=== PATIENT | male | born 1960 | race Caucasian/White ===

== ENCOUNTER 2017-09-03 07:13 | Emergency (ER) | payer OTHER ==
--- NOTE | 2017-09-03 07:28 | CPEKG ---
Heart Rate: 94 RR Interval: 638 P-R Interval: 152 QRSD Interval: 72 QT Interval: 380 QTC Interval: 476 P Warren: 40 QRS Warren: 33 T Wave Warren: 40 EKG Severity - BORDERLINE ECG - EKG Impression: SINUS RHYTHM EKG Impression: BORDERLINE PROLONGED QT INTERVAL Electronically Signed By: Gavin Go 03-Sep-2017 07:49:05
[2017-09-03] MEDS ORDERED: ASPIRIN 81 MG CHEWABLE TAB PO ONE (07:33)
[2017-09-03] MEDS ORDERED: KETOROLAC 15 MG/1 ML SDV IVP ONE (07:34)
[2017-09-03 07:46] LABS: % IMMATURE GRANULYOCYTES 0.1 % (0.0-1.1); ABSOLUTE IMMATURE GRANULOCYTES 0.01 10^3/uL (0.00-0.10); ADD DIFF? NO; ADD MORPH? NO; ADD SCAN? NO; ATYPICAL LYMPHOCYTE FLAG 10 (0-99); FRAGMENT RBC FLAG 0 (0-99); HEMATOCRIT 46.7 % (40.0-51.0); HEMOGLOBIN 16.8 g/dL (13.7-17.5); LEFT SHIFT FLG 0 (0-99); LIPEMIA HEMOLYSIS FLAG 90 (0-99); MEAN CELL HEMOGLOBIN 31.3 pg (27.9-34.1); MEAN CELL VOLUME 87.1 fL (81.5-99.8); MEAN PLATELET VOLUME 9.2 fL (8.7-11.7); PLATELET CLUMPS FLAG 10 (0-99); PLATELET COUNT 241 10^3/uL (150-400); RED BLOOD CELL COUNT 5.36 10^6/uL (4.40-6.38); RED CELL DISTRIBUTION WIDTH 11.9 % (11.5-15.2)
--- NOTE | 2017-09-03 07:46 | EDPHY ---
H & P Stated Complaint: LEFT SIDED CHEST PAIN Time Seen by Provider: 09/03/17 07:19 HPI/ROS: This patient awakened usual time at 6:30 a.m. noticed some "sharp poking sensations "to the left upper chest, left lateral neck left shoulder and arm. He describes the peak intensity of the discomfort as 3/10 and is currently 2 to 3/10 severity. He notes no clear exacerbating factors except that "it feels good to stretch shoulders back. He reports associated anxiety and reports increased work stress lately. He notes no other associated acute somatic symptoms. He drove himself by private vehicle here for further evaluation. He is worried about a potential heart source of these symptoms. ROS: No recent fevers or chills. No significant fatigue. HEENT: He is just getting over a URI that was characterized by nasal congestion and sneezing. He also mild sore throat without illness that started about 10 days ago and he reports is now resolving. Pulmonary: Mild rare cough. No shortness of breath. No pleuritic pain. Cardiovascular: She reports having some lightheadedness this morning associated with his symptoms. He he denies any heart palpitations. No leg swelling or pain. GI: No nausea. No abdominal pain. : No symptoms Endocrine: No diaphoresis or other symptoms Integumentary: No skin rash Musculoskeletal: No recent injuries. Complete review of symptoms is otherwise negative. Source: Patient Exam Limitations: No limitations - Personal History Current Tetanus Diphtheria and Acellular Pertussis (TDAP): Yes Tetanus Vaccine Date: < 10 YEARS - Medical/Surgical History Hx Asthma: No Hx Chronic Respiratory Disease: No Hx Diabetes: No Hx Cardiac Disease: No Hx Renal Disease: No Hx Cirrhosis: No Hx Alcoholism: No Other PMH: depression - Family History Significant Family History: No pertinent family hx, Other (History of hypertension both mother and father. No history of premature coronary artery disease, DVT or PE) - Social History Smoking Status: Never smoked Alcohol Use: Occasionally Drug Use: None Additional Social History: Patient reports increased work stress recently. 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 Constitutional: Initial Vital Signs Temperature (C) 36.6 C 09/03/17 07:15 Heart Rate 97 09/03/17 07:15 Respiratory Rate 16 09/03/17 07:15 Blood Pressure 145/108 H 09/03/17 07:15 O2 Sat (%) 97 09/03/17 07:15 O2 Delivery Mode Room Air Allergies/Adverse Reactions: iodine [Iodine] Allergy (Severe, Verified 10/16/15 16:22) "ALMOST HAD A HEART ATTACK" Penicillins Allergy (Unknown, Verified 10/16/15 16:22) Home Medications: Medication Instructions Recorded Methocarbamol [Robaxin 750 mg (*)] 750 - 1,500 mg PO QID PRN #30 tab 09/03/17 Metoprolol Tartrate 25 mg PO DAILY #30 tablet 09/03/17 Trintellix 09/03/17 Medical Decision Making - Diagnostics EKG Interpretation: 12 lead EKG performed at 7:21 a.m. -indication chest pain reveals sinus rhythm at 94 Intervals: Normal throughout the exception of a prolonged QT CC of for 76. Asher : Normal ST segments: Normal throughout overall assessment sinus rhythm with borderline prolonged QT. No previous EKGs are available for comparison Please refer to trace master for complete read Imaging Results: Imaging Impressions Chest X-Ray 09/03/17 07:41 Impression: Clear lungs. No acute process. ED Course/Re-evaluation: IV, monitor, aspirin 324 p.o. Toradol IV for potential musculoskeletal pain - Data Points Laboratory Results: Laboratory Results 09/03/17 07:25 09/03/17 07:25 09/03/17 09/03/17 09/03/17 07:25 07:25 07:25 WBC 8.23 10^3/uL 10^3/uL (3.80-9.50) RBC 5.36 10^6/uL 10^6/uL (4.40-6.38) Hgb 16.8 g/dL g/dL (13.7-17.5) Hct 46.7 % % (40.0-51.0) MCV 87.1 fL fL (81.5-99.8) MCH 31.3 pg pg (27.9-34.1) MCHC 36.0 g/dL g/dL (32.4-36.7) RDW 11.9 % % (11.5-15.2) Plt Count 241 10^3/uL 10^3/uL (150-400) MPV 9.2 fL fL (8.7-11.7) Neut % (Auto) 43.9 % % (39.3-74.2) Lymph % (Auto) 46.4 % H % (15.0-45.0) Franklin % (Auto) 6.3 % % (4.5-13.0) Eos % (Auto) 2.4 % % (0.6-7.6) Baso % (Auto) 0.9 % % (0.3-1.7) Nucleat RBC Rel Count 0.0 % % (0.0-0.2) Absolute Neuts (auto) 3.61 10^3/uL 10^3/uL (1.70-6.50) Absolute Lymphs (auto) 3.82 10^3/uL H 10^3/uL (1.00-3.00) Absolute Monos (auto) 0.52 10^3/uL 10^3/uL (0.30-0.80) Absolute Eos (auto) 0.20 10^3/uL 10^3/uL (0.03-0.40) Absolute Basos (auto) 0.07 10^3/uL 10^3/uL (0.02-0.10) Absolute Nucleated RBC 0.00 10^3/uL 10^3/uL (0-0.01) Immature Gran % 0.1 % % (0.0-1.1) Immature Gran # 0.01 10^3/uL 10^3/uL (0.00-0.10) D-Dimer 0.32 ug/mLFEU ug/mLFEU (0.00-0.50) Sodium 143 mEq/L mEq/L (134-144) Potassium 3.4 mEq/L L mEq/L (3.5-5.2) Chloride 103 mEq/L mEq/L (97-110) Carbon Dioxide 24 mEq/l mEq/l (22-31) Anion Gap 16 mEq/L mEq/L (8-16) BUN 11 mg/dL mg/dL (7-23) Creatinine 1.0 mg/dL mg/dL (0.7-1.3) Estimated GFR > 60 Glucose 110 mg/dL H mg/dL (70-100) Calcium 9.5 mg/dL mg/dL (8.5-10.4) Troponin I < 0.012 ng/mL ng/mL (0.000-0.034) Medications Given: Discontinued Medications Aspirin (Aspirin) 324 mg PO EDNOW ONE Stop: 09/03/17 07:34 Last Admin: 09/03/17 07:57 Dose: 324 mg Ketorolac Tromethamine (Toradol) 15 mg IVP EDNOW ONE Stop: 09/03/17 07:35 Last Admin: 09/03/17 07:57 Dose: 15 mg Departure - Departure Disposition: Home, Routine, Self-Care Clinical Impression: Atypical chest pain Rhomboid muscle strain Qualifiers: Encounter type: initial encounter Qualified Code(s): S29.012A - Strain of muscle and tendon of back wall of thorax, initial encounter Hypertension Qualifiers: Hypertension type: essential hypertension Qualified Code(s): I10 - Essential ( primary) hypertension Condition: Good Instructions: Muscle Strain (ED), Chest Pain (ED), Chronic Hypertension (ED) Additional Instructions: Diagnoses: 1. Atypical chest pain 2. Rhomboid muscle strain 3. Hypertension Your heart enzymes, electrolytes, blood count are normal today. We also checked a D-dimer to rule out blood clot in this is also normal without evidence of blood clot. Your Chest x-ray also looks normal today. Finally, no significant abnormalities in your EKG. Your chest pain seems to be musculoskeletal in etiology, although in a single visit we cannot rule out heart or lung causes of chest pain entirely. Plan: Stretching shoulder and neck each day as described. Methocarbamol muscle relaxant for discomfort in the rhomboid area as needed. Ibuprofen in addition as needed 406 100 mg per 6 hours. Tylenol in addition if needed. Metoprolol beta-lorena medication for hypertension. Call Dr. garcia-data processing manager at [facility] arrange follow-up appointment for recheck. Return to the emergency department for any significant worsening despite the treatment plan. Referrals: Jerry Hein MD [Primary Care Provider] - As per Instructions Donovan Barrios MD [Medical Doctor] - As per Instructions
[2017-09-03 08:02] LABS: ANION GAP 16 mEq/L (8-16); CALCIUM 9.5 mg/dL (8.5-10.4); CARBON DIOXIDE 24 mEq/l (22-31); CHLORIDE 103 mEq/L (97-110); GLOMERULAR FILTRATION RATE > 60; GLUCOSE 110 mg/dL (70-100); POTASSIUM 3.4 mEq/L (3.5-5.2); SODIUM 143 mEq/L (134-144)
[2017-09-03 08:12] LABS: TROPONIN I < 0.012 ng/mL (0.000-0.034)
[2017-09-03 08:48] VITALS: RESP 18; O2SAT 97
[2017-09-03 08:50] VITALS: BP 162/62; PULSE 74; TEMP 98
== END 2017-09-03 08:49 | disposition home or self-care (01) ==
LOC: CED 07:13
DX: S29.012A Strain of muscle and tendon of back wall of thorax, initial encounter (principal); I10 Essential (primary) hypertension; X58.XXXA Exposure to other specified factors, initial encounter
CPT/HCPCS: 71020-PO; 80048-PO; 84484-PO; 85025-PO; 85378-PO; 96374; J1885